=== PATIENT | female | born 1985 ===

== ENCOUNTER 2017-02-20 00:16 | Emergency (ER) | payer OTHER ==
[2017-02-20 00:16] VITALS: BMI 24.8
[2017-02-20 00:26] VITALS: BP 126/84; PULSE 72; RESP 20; TEMP 98.6; O2SAT 99
[2017-02-20 01:04] LABS: RBC URINE 7 /hpf (0-3); URINE BACTERIA FEW (<OCC); URINE BILIRUBIN NEGATIVE (NEGATIVE); URINE BLOOD NEGATIVE (NEGATIVE); URINE COLOR Yellow (YELLOW); URINE GLUCOSE (UA) NORMAL (Normal); URINE KETONE NEGATIVE (NEGATIVE); URINE LEUKOCYTE ESTERASE TRACE Leu/uL (Negative); URINE PROTEIN NEGATIVE (NEGATIVE); URINE UROBILINOGEN NORMAL mg/dL (0.2-1.0); WBC URINE 5 /hpf (0-5)
--- NOTE | 2017-02-20 01:20 | C.PDOC ---
History Of Present Illness A 31 y/o F who is 15 weeks with no prior US, c/o mild tenderness to the left sacroiliac area without injury, mild sore throat, and a small lesion to the lower lip for 2 days. Patient is seeking directions for care. Denies fever, chills, weakness, numbness, or any other complaints. Time Seen by Provider: 02/20/17 00:39 Chief Complaint (Nursing): Back Pain History Per: Patient History/Exam Limitations: no limitations Onset/Duration Of Symptoms: Days (2) Current Symptoms Are (Timing): Still Present Quality Of Discomfort: "Pain" Severity: Mild Recent travel outside of the [place]: No Additional History Per: Patient Past Medical History Reviewed: Historical Data, Nursing Documentation, Vital Signs Vital Signs: Last Vital Signs Temp 98.6 F 02/20/17 00:22 Pulse 72 02/20/17 00:22 Resp 20 02/20/17 00:22 BP 126/84 02/20/17 00:22 Pulse Ox 99 02/20/17 01:20 Family History: States: Unknown Family Hx - Social History Hx Tobacco Use: Yes Hx Alcohol Use: No Hx Substance Use: No - Immunization History Hx Tetanus Toxoid Vaccination: No Hx Influenza Vaccination: Yes Hx Pneumococcal Vaccination: No Review Of Systems Except As Marked, All Systems Reviewed And Found Negative. Constitutional: Negative for: Fever, Chills ENT: Positive for: Throat Pain Musculoskeletal: Positive for: Leg Pain ( left sacroiliac area) Skin: Positive for: Lesions Neurological: Negative for: Weakness, Numbness Physical Exam - Physical Exam Appears: Non-toxic, No Acute Distress Skin: Warm, Dry, No Rash Head: Atraumatic, Normacephalic Lips: Other (small granules on right lower lip, not vesicular) Throat: Normal, No Erythema, No Exudate Neck: Supple Cardiovascular: Rhythm Regular Respiratory: Normal Breath Sounds, No Rales, No Rhonchi, No Wheezing Gastrointestinal/Abdominal: Soft, No Tenderness, Other (Belly shows early ) Back: No CVA Tenderness Pelvic: No Vaginal Bleeding, No Vaginal Discharge Extremity: Tenderness (Mild tenderness to the sacroiliac region), Capillary Refill (<2secs) Neurological/Psych: Oriented x3, Normal Speech, Normal Cognition Gait: Steady ED Course And Treatment - Laboratory Results Lab Interpretation: Normal (UA neg.) O2 Sat by Pulse Oximetry: 99 (RA) Pulse Ox Interpretation: Normal Progress Note: tylenol ice pack Reevaluation Time: 01:18 Reassessment Condition: Improved Medical Decision Making Medical Decision Making: Impression: A 31 y/o F who is 15 weeks with no prior US, c/o mild tenderness to the left sacroiliac area without injury, mild sore throat, and small lesion to the lower lip for 2 days. Plans: * Tylenol * UA * Reassess small lip lesion, seemingly acne, benign "early mild sore throat" exam normal L sacro-iliac discomfort- ice pack/tylenol early approx 15 weeks, no prior US- emergency US not indicated, no vag bleed, UA neg. continue outpatient f/u and vit Disposition Doctor Will See Patient In The: Office Counseled Patient/Family Regarding: Studies Performed, Diagnosis - Disposition Referrals: [facility] [Outside] [facility] [Outside] [facility] [Outside] [facility] [Outside] Non [facility] Provider, [Primary Care Provider] - Disposition: HOME/ ROUTINE Disposition Time: 01:19 Condition: GOOD Additional Instructions: : continue your daily vitamin follow-up in our outpatient OBGYN Clinic for normal follow-up lower back pain Probably musculo-skeletal strain continue ice packs 1/2 hour per hour, nothing hot Tylenol 1000 mg every 6 hours as needed (safe in ) Instructions: (ED), Musculoskeletal Pain (ED) Forms: [facility] (Kiswahili) - Clinical Impression Clinical Impression: Low back strain, - Scribe Statement The provider has reviewed the documentation as recorded by the Scribanderson sagastume All medical record entries made by the Kavonibanderson were at my direction and personally dictated by me. I have reviewed the chart and agree that the record accurately reflects my personal performance of the history, physical exam, medical decision making, and the department course for this patient. I have also personally directed, reviewed, and agree with the discharge instructions and disposition.
== END 2017-02-20 01:30 | disposition home or self-care (01) ==
LOC: C.ER 00:16 → SUPCPDRO 00:16 → C.ER 01:30
DX: S39.012A Strain of muscle, fascia and tendon of lower back, initial encounter (principal); X58.XXXA Exposure to other specified factors, initial encounter; O26.892 Other specified pregnancy related conditions, second trimester; Z3A.15 15 weeks gestation of pregnancy

== ENCOUNTER 2017-03-26 23:52 | Emergency (ER) | payer OTHER ==
[2017-03-26 23:53] VITALS: BMI 24.8
--- NOTE | 2017-03-27 01:43 | OBHP ---
Datetime: 03/27/2017 01:35 IP Chief Complaint Other: vulvar discomfort IP Adm Impression Other: genital herpes IP Admit Plan: Discharge home Admit Comment, IP Provider: chief complaint-bump on ;laboa HPI 31 y/o at 24 wga with c/o left sided vulvar discomfort since the mornin.pain is worsening .Denies any new sexual partner.de nies vaginal discharge.Reporst movement course uncomplicated as per patient PMH denieds PSH denies OBGYN HX sOCIAL HX deneis tobacco, alcohol or illicit drug use Exam see exam section Pelvic Vulva-left labia with erythematous and ulcerated lesions Vagina no leisons cervix closed A/P 31 y/o at 24 wga with left sided vulvar pain,Clinically consistent withgenital herpes -start acyclovir and hetal ue thrpughout the -lidocaien gel topiclly for pain relief follow up with obgynb in 2 days Extremities - PN: Normal Abdomen - PN: Normal Lungs - PN: Normal Heart - PN: Normal Neurologic - PN: Normal General - PN: Normal FHR - Baseline A Provider: 140s Vital Signs Provider: Reviewed NICHD Variability Prov Fetus A: Moderate 6-25bpm NICHD Decel Fetus A IP Provider: None DTRs - PN: Normal
[2017-03-27 07:01] VITALS: BP 82/64; PULSE 73; TEMP 99.2
== END 2017-03-27 01:58 | disposition home or self-care (01) ==
LOC: C.EROB 23:52
DX: O98.512 Other viral diseases complicating pregnancy, second trimester (principal); B00.89 Other herpesviral infection; Z3A.24 24 weeks gestation of pregnancy

== ENCOUNTER 2017-04-25 20:08 | Emergency (ER) | payer OTHER ==
[2017-04-25 20:09] VITALS: BMI 24.8
[2017-04-25 20:30] VITALS: RESP 20
--- NOTE | 2017-04-25 20:55 | C.PDOC ---
History Of Present Illness 31 y/o female EGA 6 months presents to ED with complaints of sore throat and pain when swallowing since yesterday. Patient denies fever, sick contacts, abdominal pain, vaginal bleeding or any other complaints at this time. SORE THROAT, PAINFUL SWALLOWING SINCE YEST. NO FEVER, SICK CONTACTS W SAME. EGA 6 MO. NO ABD PAIN, VB EXAM NAD HEENT MIN PHARYNGEAL ERYTHEMA NO EXUDATE, NO TONSILAR SWELL, UVULA MIDLINE. NORMAL VOICE, NO DROOLING SUPPLE LUNGS CTA B/L NO W/R/R Time Seen by Provider: 04/25/17 20:33 Chief Complaint (Nursing): Headache History Per: Patient History/Exam Limitations: no limitations Onset/Duration Of Symptoms: Days Current Symptoms Are (Timing): Still Present Location Of Pain: Throat Past Medical History Reviewed: Historical Data, Nursing Documentation, Vital Signs Vital Signs: Last Vital Signs Temp 98.4 F 04/25/17 20:22 Pulse 100 H 04/25/17 20:22 Resp 20 04/25/17 20:22 BP 116/63 04/25/17 20:22 Pulse Ox 99 04/25/17 21:05 - Medical History PMH: No Chronic Diseases Surgical History: No Surg Hx Family History: States: No Known Family Hx - Social History Hx Tobacco Use: Yes Hx Alcohol Use: No Hx Substance Use: No - Immunization History Hx Tetanus Toxoid Vaccination: No Hx Influenza Vaccination: Yes Hx Pneumococcal Vaccination: No Review Of Systems Constitutional: Negative for: Fever, Chills ENT: Positive for: Throat Pain Gastrointestinal: Negative for: Abdominal Pain Genitourinary: Negative for: Vaginal Bleeding Physical Exam - Physical Exam Appears: No Acute Distress Skin: Warm, Dry, No Rash Head: Atraumatic, Normacephalic Eye(s): bilateral: Normal Inspection Ear(s): Bilateral: Normal Nose: Normal Oral Mucosa: Moist Throat: Erythema, No Exudate, No Drooling, Other (Uvula midline, Normal voice) Neck: Normal ROM, Supple Chest: Symmetrical Cardiovascular: Rhythm Regular Respiratory: Normal Breath Sounds, No Rales, No Rhonchi, No Wheezing, Other ( clear to auscultation) Neurological/Psych: Oriented x3 ED Course And Treatment O2 Sat by Pulse Oximetry: 99 (RA) Pulse Ox Interpretation: Normal Disposition Counseled Patient/Family Regarding: Diagnosis, Need For Followup, Rx Given - Disposition Referrals: YOUR,PMD [Other] [facility] [Outside] [facility] [Outside] Disposition: HOME/ ROUTINE Disposition Time: 20:56 Condition: GOOD Prescriptions: Amoxicillin [Amoxil 500 mg Cap] 1,000 mg PO DAILY #10 cap Instructions: Pharyngitis (ED) Forms: [email or web address] (Ukrainian) - Clinical Impression Clinical Impression: , Pharyngitis - Scribe Statement The provider has reviewed the documentation as recorded by the Blair Witt All medical record entries made by the Blair were at my direction and personally dictated by me. I have reviewed the chart and agree that the record accurately reflects my personal performance of the history, physical exam, medical decision making, and the department course for this patient. I have also personally directed, reviewed, and agree with the discharge instructions and disposition.
[2017-04-25 21:23] VITALS: BP 119/78; PULSE 92; TEMP 98.8; O2SAT 98
== END 2017-04-25 21:53 | disposition home or self-care (01) ==
LOC: C.ER 20:08
DX: O26.892 Other specified pregnancy related conditions, second trimester (principal); Z3A.24 24 weeks gestation of pregnancy; J02.9 Acute pharyngitis, unspecified
CPT/HCPCS: 99285; J8540